=== PATIENT | female | born 1985 | race Caucasian/White ===

== ENCOUNTER 2025-03-20 06:27 | Day surgery (SDC) | payer OTHER ==
[2025-03-13 13:27] VITALS: BMI 28.9
[2025-03-20] MEDS ORDERED: LIDOCAINE HCL/PF 2% SDV 5ML VIAL ONE (07:55)
[2025-03-20] MEDS ORDERED: MIDAZOLAM HCL 2 MG/2 ML SINGLE DOSE VIAL ONE (07:56)
[2025-03-20] MEDS ORDERED: PROPOFOL 40 ML ONE (07:56)
[2025-03-20] MEDS ORDERED: SUGAMMADEX SODIUM 200 MG/2 ML VIAL ONE (08:01)
[2025-03-20] MEDS: ceFAZolin SODIUM 1 GM VIAL IVPB ONE (08:30)
[2025-03-20] MEDS ORDERED: ceFAZolin SODIUM 1 GM VIAL ONE (08:35)
[2025-03-20] MEDS: [UNRECOGNIZED DRUG - OTHER] NR ONE (08:58)
[2025-03-20] MEDS ORDERED: ROCURONIUM BROMIDE 50 MG/5 ML SYRINGE ONE (09:38)
[2025-03-20] MEDS ORDERED: PROPOFOL 20 ML ONE (10:45)
[2025-03-20] MEDS: CEFAZOLIN 2 GM in DEXTROSE 5%-WATER - 100 ML IVPB ONE (12:28)
[2025-03-20] MEDS: ACETAMINOPHEN 1000 MG/100 ML BAG IVPB ONE (12:29)
[2025-03-20] MEDS: TRANEXAMIC ACID 1000 MG/10 ML VIAL IVPUSH ONE (12:30)
[2025-03-20] MEDS: LACTATED RINGERS SOLUTION 1,000 ML IV SCH (12:35)
[2025-03-20] MEDS ORDERED: HYDROmorphone HCL CARPU-JECT 2 MG/1 ML DISP.SYRIN ONE (13:28)
[2025-03-20] MEDS: HYDROmorphone HCl 2 MG/ML VIAL IVPUSH ONE (13:30)
[2025-03-20] MEDS ORDERED: oxyCODONE HCL 10 MG SUSTAINED ACTING TABLET ONE (16:28)
[2025-03-20] MEDS ORDERED: ONDANSETRON 4 MG/2 ML VIAL ONE (16:32)
[2025-03-20] MEDS: ONDANSETRON 4 MG/2 ML VIAL IVPUSH PRN (16:35)
[2025-03-20] MEDS ORDERED: oxyCODONE HCL 5 MG TABLET ONE (16:53)
[2025-03-20] MEDS: oxyCODONE HCL 5 MG TABLET PO PRN (17:00)
[2025-03-20 17:27] VITALS: RESP 18
[2025-03-20] MEDS ORDERED: BISACODYL 5 MG TABLET.DR (FP) PO PRN (18:19)
[2025-03-20] MEDS ORDERED: ONDANSETRON 4 MG/2 ML VIAL IVPUSH PRN (18:19)
[2025-03-20] MEDS ORDERED: LACTATED RINGERS SOLUTION 1,000 ML/1,000 ML INFUS.BAG IV SCH (18:30)
[2025-03-20] MEDS: SIMETHICONE 80 MG TAB.CHEW (FP) PO PRN (19:17)
[2025-03-20] MEDS: ACETAMINOPHEN 1000 MG/100 ML BAG IVPB SCH (19:21)
[2025-03-20] MEDS: CEFAZOLIN 1 GM/D5W 1 GM/50 ML BAG IVPB SCH (19:53)
[2025-03-20 19:57] LABS: HEMATOCRIT 32.2 % (34.1-44.9); HEMOGLOBIN 8.9 g/dL (11.2-15.7); MCHC 27.6 g/dl (32.2-35.5); MEAN CELL VOLUME 72.4 fl (79.4-94.8); MEAN PLT VOLUME 10.7 fl (9.4-12.3); PLATELET COUNT 364 x10^3/uL (182-369); RDW 17.7 % (12.2-17.1)
[2025-03-20] MEDS: IBUPROFEN 800 MG/8 ML IJ IVPB SCH (20:00)
[2025-03-20] MEDS: DOCUSATE SODIUM 100 MG CAPSULE (FP) PO PRN (21:40)
[2025-03-20] MEDS: ZOLPIDEM TARTRATE 5 MG TABLET PO PRN (21:40)
[2025-03-20] MEDS: HYDROmorphone HCL CARPU-JECT 2 MG/1 ML DISP.SYRIN IVPB PRN (22:11)
[2025-03-21 05:48] VITALS: TEMP 98.2
[2025-03-21 07:51] LABS: HEMATOCRIT 27.6 % (34.1-44.9); HEMOGLOBIN 7.6 g/dL (11.2-15.7); MCHC 27.5 g/dl (32.2-35.5); MEAN CELL VOLUME 71.7 fl (79.4-94.8); MEAN PLT VOLUME 11.5 fl (9.4-12.3); PLATELET COUNT 395 x10^3/uL (182-369); RDW 17.9 % (12.2-17.1)
[2025-03-21] MEDS: oxyCODONE HCL 5 MG TABLET PO PRN (08:31)
[2025-03-21] MEDS: ENOXAPARIN NA (PORCINE) 40 MG/0.4 ML DISP.SYRIN SQ SCH (09:03)
[2025-03-21 09:49] VITALS: BP 125/75; PULSE 91
[2025-03-21] MEDS ORDERED: IBUPROFEN 600 MG TABLET (FP) PO PRN (10:30)
[2025-03-21] MEDS ORDERED: ACETAMINOPHEN 500 MG TABLET (FP) PO PRN (13:00)
== END 2025-03-21 10:05 | disposition home or self-care (01) ==
LOC: JASU-SURG 06:27 → JASUSAT 06:27 → J3W 18:32 → JASUSAT 03-21 10:05
PROVIDERS: ATTEND Specialist
PROC: 0UT0FZZ Resection of Right Ovary, Via Natural or Artificial Opening With Percutaneous Endoscopic Assistance (ICD-10-PCS; 2025-03-20)
PROC: 8E0W4CZ Robotic Assisted Procedure of Trunk Region, Percutaneous Endoscopic Approach (ICD-10-PCS; 2025-03-20)
PROC: 0DNW4ZZ Release Peritoneum, Percutaneous Endoscopic Approach (ICD-10-PCS; 2025-03-20)
PROC: 0UT9FZZ Resection of Uterus, Via Natural or Artificial Opening With Percutaneous Endoscopic Assistance (ICD-10-PCS; principal; 2025-03-20 08:00)
PROC: 0DNU4ZZ Release Omentum, Percutaneous Endoscopic Approach (ICD-10-PCS; 2025-03-20 08:00)
PROC: 0UT7FZZ Resection of Bilateral Fallopian Tubes, Via Natural or Artificial Opening With Percutaneous Endoscopic Assistance (ICD-10-PCS; 2025-03-20 08:00)
DX: D25.9 Leiomyoma of uterus, unspecified (principal); N92.1 Excessive and frequent menstruation with irregular cycle; N73.6 Female pelvic peritoneal adhesions (postinfective); D50.9 Iron deficiency anemia, unspecified
CPT/HCPCS: 58554; S2900; 36415; 81025; 85027; 86850; 86900; 86901; 88305-TC; 88307-TC; 94010; 94760